=== PATIENT | male | born 1995 | race Caucasian/White ===

== ENCOUNTER 2018-01-28 19:31 | Emergency (ER) | payer OTHER ==
[2018-01-28 19:37] VITALS: BP 150/75
--- NOTE | 2018-01-28 19:56 | EDPHY ---
H & P Time Seen by Provider: 01/28/18 19:55 HPI/ROS: Chief complaint. Ankle injury HPI. 22-year-old male was ice skating just prior to arrival. Another skater cut him off and he fell twisting his left ankle. He has pain swelling to the lateral aspect of his left ankle. He has been ambulatory since the injury. No previous fracture to the ankle though he has previously fracture the base of the 5th metatarsal. Did not strike his head or lose consciousness. No neck pain. ROS 10 systems were reviewed and negative with the exception of the elements mentioned in the history of present illness Past Medical/Surgical History: Healthy Social History: Single, nonsmoker, no alcohol Smoking Status: Never smoked Physical Exam: General Appearance: Alert well-developed male mild distress vital signs stable Eyes: Pupils equal and round no pallor or injection. ENT, Mouth: Mucous membranes are moist. Respiratory: There are no retractions, lungs are clear to auscultation. Cardiovascular: Regular rate and rhythm. Gastrointestinal: Abdomen is soft and nontender, no masses, bowel sounds normal. Neurological: Awake and alert, sensory and motor exams grossly normal. Skin: Warm and dry, no rashes. Musculoskeletal: Neck is supple nontender. Extremities tenderness and mild swelling to the lateral malleolar area. Tenderness below the lateral malleolus. No obvious deformity. No tenderness over the 5th metatarsal Psychiatric: Patient is oriented X 3, there is no agitation. Constitutional: Initial Vital Signs Temperature (C) 36.6 C 01/28/18 19:35 Heart Rate 78 01/28/18 19:35 Respiratory Rate 18 01/28/18 19:35 Blood Pressure 150/75 H 01/28/18 19:35 O2 Sat (%) 97 01/28/18 19:35 O2 Delivery Mode Room Air Allergies/Adverse Reactions: No Known Allergies Allergy (Unverified 01/28/18 19:34) Home Medications: Medication Instructions Recorded NK [No Known Home Meds] 01/28/18 Medical Decision Making - Diagnostics Imaging Results: X-ray left ankle reviewed by me and shows no fracture dislocation Procedures: Velcro ankle splint is applied. Post splint application shows good anatomic position and distal motor vascular sensitivity to be intact ED Course/Re-evaluation: Patient and I discussed imaging study results, treatment plan including criteria for return and importance of follow-up and further evaluation. He expresses understanding and agreement Differential Diagnosis: I considered sprain, fracture, dislocation Departure - Departure Disposition: Home, Routine, Self-Care Clinical Impression: Ankle sprain Qualifiers: Encounter type: initial encounter Involved ligament of ankle: unspecified ligament Laterality: left Qualified Code(s): S93.402A - Sprain of unspecified ligament of left ankle, initial encounter Condition: Good Instructions: Ankle Sprain (ED), Ankle Stirrup Splint (ED) Additional Instructions: Ice and elevation next 24 hr Ibuprofen 600 mg every 6 hr for discomfort Splint on for 1 week. For continuing symptoms follow-up with orthopedics. Return sooner for worsening symptoms Referrals: NONE *PRIMARY CARE P,. [Primary Care Provider] - As per Instructions Gary Andrews MD [Medical Doctor] - 5-7 days, if not improved
== END 2018-01-28 20:10 | disposition home or self-care (01) ==
LOC: CED 19:31
DX: S93.402A Sprain of unspecified ligament of left ankle, initial encounter (principal); V00.211A Fall from ice-skates, initial encounter; Y92.89 Other specified places as the place of occurrence of the external cause; Y93.21 Activity, ice skating
CPT/HCPCS: 73610-PO; L4350